=== PATIENT | female | born 1970 | race Two or more races ===

== ENCOUNTER 2018-06-21 15:50 | Emergency (ER) | END 2018-06-21 17:59 | disposition home or self-care (01) ==

== ENCOUNTER 2018-06-24 12:30 | Emergency (ER) | END 2018-06-24 13:19 | disposition home or self-care (01) ==

== ENCOUNTER 2018-06-29 12:08 | Emergency (ER) | END 2018-06-29 12:47 | disposition home or self-care (01) ==